=== PATIENT | female | born 1970 | race Caucasian/White ===

== ENCOUNTER 2017-07-09 13:06 | Emergency (ER) | payer OTHER ==
[~2017-07-09 13:06] MED LIST: OXYC-474 PO; THYR30TA2 PO
[2017-07-09 13:12] VITALS: BP 115/59; PULSE 75; RESP 20; O2SAT 98
[2017-07-09 13:15] VITALS: BP 111/59; PULSE 71; RESP 16; O2SAT 98
[2017-07-09] MEDS ORDERED: Acetaminophen IV 1,000 MG in IV Premix 1 EACH IV ONE (13:15)
[2017-07-09] MEDS ORDERED: Ketorolac 15 mg/mL Inj IVPUSH ONE (13:15)
[2017-07-09] MEDS ORDERED: 0.9% Sodium Chloride 1,000 ML IV ONE (13:15)
[2017-07-09] MEDS ORDERED: MetoCLOpramide 5 mg/mL 2 mL Inj IVPUSH ONE (13:15)
[2017-07-09] MEDS ORDERED: Dexamethasone 10 mg/mL Inj IVPUSH ONE (13:15)
--- NOTE | 2017-07-09 13:30 | ED.REPORT ---
HPI-Headache Date of Service Jul 09, 2017 ED Provider: Tristen Hutchinson MD The pt is a 46 y/o female w/ a hx of migraines, Graves disease, and lumbar radiculopathy presenting to the ED complaining of a headache onset 2100 last night. The headache is only on the L side of her head and is much worse when standing and better while lying down. The pt is also experiencing nausea and describes her walking feeling weird and light on my feet. The pt also describes an episode of sharp back pain while bending down. Denies any weakness , chest pain, abdominal pain, fever, or changes in speech. The pt had a CT myelogram at 1100 yesterday and used to experience migraines similar to the one today which she says was caused by the aspartame in the yogurt she was eating. Nursing Notes Stated Complaint: HEADACHE,NAUSEA Chief Complaint: Headache Nursing Notes Reviewed: Yes Allergies: Coded Allergies: Sulfa (Sulfonamide Antibiotics) (Verified Allergy, Severe, rashes, 07/09/17 ) morphine (Verified Allergy, Severe, vomiting, 07/09/17) Scheduled Thyroid,Pork (Ozone Thyroid) 30 Mg Tablet 30 MG PO DAILY Scheduled PRN Oxycodone (Roxicodone) 5 Mg Tablet 5-10 MG PO q4 PRN PRN For Pain General Time Seen by MD: 13:13 Chief Complaint Headache Hx Obtained From: Patient Arrived By: Walk-in Sudden in Onset?: Yes Onset Occurred: Yesterday Symptom Duration: Since onset Recent Healthcare: No recent hospitalization, Recent doctor visit Similar Sx Previous: Yes Past Medical History Past Medical History Lumbar radiculopathy Graves disease Asthma Past Surgical History Back surgery Smoking History Never Smoker Social History Alcohol Use: Denies alcohol use Drug Use: Denies drug use Ambulatory Status Independent Review of Systems Constitutional: Denies: Fever GI: Reports: Nausea, Denies: Abdominal pain Neurologic: Reports: Headache, Problem walking, Denies: Slurred speech, Unable to speak, Weakness Complete sys rev & neg: except as marked. Cardiovascular: Denies: Chest pain Physical Exam Initial Vital Signs Vital Signs (First) Date Time Temp Pulse Resp B/P Pulse Ox O2 Delivery O2 Flow Rate FiO2 07/09/17 13:12 37.1 75 20 115/59 98 Room Air Initial VS: Reviewed ENT: Mucous membranes moist, Conjunctiva normal, No scleral icterus Respiratory: Breath sounds normal, Clear to auscultation, No respiratory distress Cardiovascular: Regular rate & rhythm, Heart sounds normal, Intact distal pulses Extremities: Vascular intact, Neuro intact, No swelling, No tenderness Skin: Warm, Dry, No cyanosis Psychiatric: Mood/affect normal, Behavior normal, Normal thought content General/Constitutional: Awake, Alert Head / Eyes: Atraumatic, Normocephalic, PERRL, EOMI Neck: Atraumatic, Supple, Full range of motion Neurologic: Oriented X3, Speech NL, No motor deficits, Memory NL, Gait NL Mental Status: Negative: Confused Interpretation & Diagnostics Lab Results Interpretation Test 07/09/17 13:25 Hold Purple Top Tube Received (Received) Hold [place] Top Tube Received (Received) Re-Eval/Medical Decision Source of Hx: Old records Re-Evaluation/Progress : Time of Eval: 14:53 Re-Evaluation/Progress Note: Pt rechecked. F/U instructions and RTER warnings given. All questions addressed. Counseled Regarding: Diagnosis, Lab results, Need for follow-up, When/why to return to ED Discharge & Departure Impression: Primary Impression: Migraine Migraine type: without aura Status migrainosus presence: without status migrainosus Intractability: not intractable Qualified Code: G43.009 - Migraine without aura, not intractable, without status migrainosus Disposition: Home Discharge Condition All VS Reviewed: Yes Condition: Stable Patient Instructions: Migraine Headache (ED) Additional Instructions: I am pretty sure that your headache is a migraine. Make sure to get plenty of rest today and I suspect you will feel much better by tomorrow morning. Please return to the emergency department if you experience any new or worsening symptoms. I hope you feel better soon. Because you had the injection yesterday it is possible that you have a spinal headache. However, your headache is behaving much more like a migraine at this point. Referrals: [facility] Scribe Attestation Portions of this note were transcribed by Emmett Aguilar. I, Dr. Hutchinson personally performed the history, physical exam and medical decision-making; I reviewed and confirmed the accuracy of the information in the transcribed note. copies to: [facility] Tristen Hutchinson MD Jul 09, 2017 13:30 Emmett Aguilar Jul 09, 2017 14:47
[2017-07-09 15:02] VITALS: BP 102/51; PULSE 75; RESP 16; O2SAT 100
== END 2017-07-09 15:07 | disposition home or self-care (01) ==
LOC: SED 13:06
DX: G43.009 Migraine without aura, not intractable, without status migrainosus (principal); J45.909 Unspecified asthma, uncomplicated; Z88.2 Allergy status to sulfonamides; Z88.5 Allergy status to narcotic agent
CPT/HCPCS: 96365; 96375; 99284; J0131; J1100; J1200; J1885; J2765; J7030

== ENCOUNTER 2017-07-11 10:54 | Emergency (ER) | payer OTHER ==
[2017-07-11 11:05] VITALS: BP 107/74; PULSE 65; RESP 20; O2SAT 99
--- NOTE | 2017-07-11 11:27 | ED.REPORT ---
HPI-Headache Date of Service Jul 11, 2017 ED Provider: Jae Jaquez PA-C Christie is a 46-year-old female with a history of migraines, Graves' disease and lumbar radiculopathy returns to the emergency department with complaint of a spinal headache. Patient states she had a CT myelogram performed about 3 days ago. She developed a relatively mild left-sided headache shortly after that which has gradually been worsening. She notes that her symptoms are significantly improved while lying down and much worse when standing up. Her headache pain is in many ways very similar to her typical migraine pain the patient states she has not had a migraine in several years. Today she complains the pain is worsened, become global and encompassed both her neck and upper back. She states the pain is 10 out of 10 when she is upright and 5/10 when reclining. Associated with blurred vision and nausea when pain is severe. Denies vision loss, difficulty speaking or swallowing, numbness or weakness in her limbs, vomiting, chest pain, shortness of breath, rash, fever, shaking chills. Patient reports use of chronic opiates for back pain, which she has been taking as scheduled. She presents to emergency department at the direction of her primary care provider. Nursing Notes Stated Complaint: SPINAL HEADACHE Chief Complaint: General Complaint Nursing Notes Reviewed: Yes Allergies: Coded Allergies: Sulfa (Sulfonamide Antibiotics) (Verified Allergy, Severe, rashes, 07/11/17) morphine (Verified Allergy, Severe, vomiting, 07/11/17) latex (Verified Allergy, Unknown, 07/11/17) Scheduled Thyroid,Pork (Sherman Thyroid) 30 Mg Tablet 30 MG PO DAILY Scheduled PRN Oxycodone (Roxicodone) 5 Mg Tablet 5-10 MG PO q4 PRN PRN For Pain General Time Seen by MD: 11:06 Chief Complaint Other (spinal headache) Sudden in Onset?: No Past Medical History Past Medical History Lumbar radiculopathy Graves disease Asthma Past Surgical History Back surgery Smoking History Never Smoker Social History Alcohol Use: Denies alcohol use Drug Use: Denies drug use Ambulatory Status Independent Review of Systems Review of Systems Note: Negative unless stated otherwise in history of present illness Physical Exam General: Well appearing, well developed, well nourished, no acute distress. Head: Atraumatic, normocephalic. No mastoid tenderness. Eyes: No scleral icterus or injection. No discharge. PERRL. Vision grossly intact. Ears: Pinna and tragus nontender with manipulation. External auditory canal patent, atraumatic and without discharge. Tympanic membrane franco, shiny and translucent without fluid, bulging, retraction or perforation. Hearing grossly intact. Nose: Symmetrical, nares patent without discharge. No frontal or maxillary sinus tenderness. Mouth/pharynx: normal dentition, mucus membranes moist. Tonsils 2+ and symmetrical, uvula midline. Pharynx noninjected, no cobblestoning or discharge. Voice clear. Neck: Excellent range of motion with mild exacerbation of pain. No tenderness or lymphadenopathy. Trachea midline. Respiratory: No respiratory distress, no increased work of breathing. Speaks in complete sentences. Skin: Warm and dry. Neurologic: Normal finger-nose, heel-nicole, rapid hand. Negative pronator drift. Sensation grossly intact in extremities. Cranial nerves: Vision grossly intact, PERRL, EOMI. Facial motion symmetrical, sensation to light touch over forehead, maxilla and mandible present and equal B /L. Voice clear and fluent, no drooling/pooling of saliva, uvula rises midline. Psychological: alert and oriented. Speech appropriate, linear and logical. Behavior appropriate. Initial Vital Signs Vital Signs (First) Date Time Temp Pulse Resp B/P Pulse Ox O2 Delivery O2 Flow Rate FiO2 07/11/17 11:05 37.1 65 20 107/74 99 Room Air Procedures Procedure Notes: Blood patch performed by Dr. Barrientos Re-Eval/Medical Decision Med Decision/Clinical Course 46 her old female returns to emergency department with ongoing pain at roughly [address]ogram. Concern for spinal headache. Seen in this department about 2 days ago and pain was thought to be more consistent with migraine. Patient was discharged to home. Complains of worsening pain most severe was standing up, associated with nausea and blurred vision. Denies other symptoms. Physical examination reveals mild exacerbation of neck pain with range of motion. Neurological examination is normal, otherwise benign and vital signs normal, specifically afebrile. High suspicion at this point for a spinal headache. Low concern for migraine, intracranial hemorrhage, mass, CVA, TIA. Anesthesia was consulted. Dr. Barrientos examined the patient and performed a blood patch, initiated 1 L normal saline. Afterwards the patient feels significantly improved passes road test and wishes to be discharged. Advised regarding primary care follow-up, provided emergency return precautions. Patient verbalized understanding of, and consent to, the plan. Consultation #1: Referral / Consult Name: Evelio Barrientos MD Consulted With: Anesthesia Note: Suggests contacting interventional radiology, as this is a patient. Consultation #2: Referral / Consult Name: Kinjal Fields MD Call Returned at: 12:45 Note: Radiology is aware the patient, confirms CSF leak, but does not perform blood patches. Refers to anesthesiology. Consultation #3: Referral / Consult Name: Evelio Barrientos MD Consulted With: Anesthesia Composing Room Supervisor: Will see patient Discharge & Departure Impression: Primary Impression: Spinal headache Disposition: Home Discharge Condition All VS Reviewed: Yes Condition: Stable Additional Instructions: Evaluation in the emergency department for headache includes interview and physical examination as well as consultation with anesthesia. This appears to be a spinal headache related to your CT myelogram several days ago. An anesthesiologist performed a blood patch should significantly improve your symptoms over the next 2 days. Follow-up with your primary care provider in the next few days to be sure this is progressing as expected. Return to the emergency department for new or worsening symptoms including new, sudden or severe headache, neurological symptoms such as weakness, difficulty speaking, vision changes or fever. Referrals: Veronica Aparicio MD EDSupervising Provider for APC: So Mayer MD copies to: Veronica Aparicio MD, Seth PA-C Jul 11, 2017 11:27
[2017-07-11 13:35] VITALS: BP 120/79; PULSE 103; RESP 14; O2SAT 99
[2017-07-11] MEDS ORDERED: 0.9% Sodium Chloride 1,000 ML IV ONE (13:45)
[2017-07-11 15:01] VITALS: BP 104/55; PULSE 72; RESP 10; O2SAT 98
--- NOTE | 2017-07-11 15:57 | PROCED ---
[address] [address] PROCEDURE NOTE PATIENT: CLARISA YOUSSEF : 1970 MR#: [id number] ADMIT: 07/11/2017 JOB ID: [id number] DATE OF SERVICE: 07/11/2017 POSTOPERATIVE DIAGNOSIS(ES): PREOPERATIVE DIAGNOSIS(ES): SURGEON: Evelio Barrientos MD. HISTORY: The patient is a 46-year-old woman with history of CT myelogram on July 08, 2017. She states that the evening after the CT myelogram she began to have a headache which was worsened by standing up. She describes the headache as throbbing. She also had blurring of her vision. Since the start of the headache, it has gradually worsened. The headache is described as 10/10 while standing and 5/10 while lying flat. She states that also her pain radiates down her neck into her back and is worsened by flexion of the neck. She denies any recent fevers. Denies any pain in her back and states that the numbness and weakness in her legs is at baseline. PROCEDURE: The patient was consented. Risks and benefits of the procedure were discussed. She agreed to the procedure. She was sterilely prepped and draped. INCOMPLETE: Dictation ends here.
--- NOTE | 2017-07-11 17:21 | PROCED ---
[address] [address] PROCEDURE NOTE PATIENT: CLARISA YOUSSEF : 1970 MR#: [id number] ADMIT: 07/11/2017 JOB ID: [id number] DATE OF SERVICE: 07/11/2017 PREOPERATIVE DIAGNOSIS(ES): Tkde-dxnfi-whciouff headache. POSTOPERATIVE DIAGNOSIS(ES): SURGEON: Evelio Barrientos MD HISTORY: The patient is a 46-year-old woman with history of posteropuncture headache following CT myelogram on July 08. She states that after the CT myelogram, she began to have the headache which worsened when she stood up and began around midnight. She states that since the beginning of the head, it has been gradually worsening with time. She has noticed that with flexion of her neck, she has radiation of pain down her back and she has had blurring of her vision while standing at times. She describes the headache as throbbing and 10/10 while standing, and improves while lying flat, to 5/10. She denies any numbness or tingling above baseline, though she does have numbness and weakness in her legs. PROCEDURE IN DETAIL: The patient was consented. The risks and benefits of the procedure were discussed. The patient's questions were answered and she agreed to the procedure. The patient was sterilely prepped and draped. The L4-5 interspace was topicalized with 3 cc of 1% lidocaine. An 18-gauge Tuohy inserted at the L4-5 interspace with [id number] to saline at 5 cm depth. Simultaneously, RN provided a sterile blood sample from the right AC which was injected into the epidural needle. Twenty cc of sterile blood injected total. The patient tolerated the procedure well. There were no radiculopathies. The patient reported improvement in her headache while standing following the procedure. ED provider advised to administer 1 L bolus prior to discharge.
== END 2017-07-11 14:55 | disposition home or self-care (01) ==
LOC: SED 10:54
DX: G97.1 Other reaction to spinal and lumbar puncture (principal); Y84.2 Radiological procedure and radiotherapy as the cause of abnormal reaction of the patient, or of later complication, without mention of misadventure at the time of the procedure; Y92.89 Other specified places as the place of occurrence of the external cause; Y93.89 Activity, other specified; Y99.8 Other external cause status; R11.0 Nausea; G43.909 Migraine, unspecified, not intractable, without status migrainosus; E05.00 Thyrotoxicosis with diffuse goiter without thyrotoxic crisis or storm; M54.16 Radiculopathy, lumbar region; Z98.890 Other specified postprocedural states; Z88.2 Allergy status to sulfonamides; Z88.5 Allergy status to narcotic agent; Z91.040 Latex allergy status
CPT/HCPCS: 62273; 96360; 99284; J7030